=== PATIENT | male | born 1990 | race African-American/Black ===

== ENCOUNTER 2016-08-23 21:16 | Emergency (ER) | payer OTHER ==
[~2016-08-23] VITALS: Ht 175.3 cm; Wt 93.0 kg
[~2016-08-23 21:16] MED LIST: CLARITIN10 MG PO; FLEXERIL10 MG PO; IBUPROFEN800 M1 PO; MOBIC 15MG15 MG PO; NASONEX17 GM NASB; TESSALON PERLE100 M1 PO; ZITHROMAX250 M2 PO
[2016-08-23 21:27] VITALS: BP 155/82
--- NOTE | 2016-08-23 22:04 | RADIOLOGY REPORT ---
EXAMINATION: XR CHEST CLINICAL INFORMATION: Cough. COMPARISON: None TECHNIQUE: 2 views of the chest were obtained. FINDINGS: There are hypoventilatory changes in the lungs. No airspace opacities or pleural effusions are otherwise identified. The cardiomediastinal silhouette is normal. No acute osseous abnormality is seen. IMPRESSION: Low lung volumes with hypoventilatory changes. Otherwise, no acute process.
[2016-08-23] MEDS ORDERED: MEDROL4 M2 PO (22:53)
[2016-08-23] MEDS ORDERED: GUAIFENESIN-COD10 ML PO (22:53)
[2016-08-23] MEDS ORDERED: ZITHROMAX250 M2 PO (22:53)
--- NOTE | 2016-08-23 22:54 | ED DYSPNEA/ASTHMA COMPLAINT ---
History of Present Illness General Chief Complaint: General Adult Stated Complaint: " SOB [id number], CHEST PRESSURE, COUGHING" Source: patient, old records Exam Limitations: no limitations Vital Signs & Intake/Output Vital Signs & Intake/Output Vital Signs Date Time Temp Pulse Resp B/P Pulse O2 O2 Flow FiO2 Ox Delivery Rate 08/23 2126 98.6 110 16 155/82 100 Room Air Allergies Coded Allergies: amphetamine (From Adderall) (UNKNOWN REACTION 06/03/16) dextroamphetamine (From Adderall) (UNKNOWN REACTION CHILD 06/03/16) Reconcile Medications Azithromycin (Zithromax) 250 MG TABLET 1 DP PO AD bronchitis 2 the first day followed by 1 for days 2-5 Azithromycin (Zithromax) 250 MG TABLET 1 DP PO AD URI 2 the first day followed by 1 for days 2-5 Benzonatate (Tessalon Perle) 100 MG CAPSULE 1 CAP PO TID PRN COUGH CYCLOBENZAPRINE HCL (Flexeril) 10 MG TAB 1 TAB PO Q8H PRN spasm/pain Avoid operating motor vehicle or heavy machinery Ibuprofen 800 MG TABLET 1 TAB PO TID PRN PAIN Loratadine (Claritin) 10 MG TAB 1 TAB PO PRN ALLERGIES (Reported) Meloxicam (Mobic 15MG) 15 MG TAB 1 TAB PO DAILY PRN PAIN/INFLAMMATION Methylprednisolone. (Medrol) 4 MG TAB.DS.PK 1 DP PO AD BRONCHITIS 6 on day 1 then reduce by one tablet daily until gone Mometasone Furoate (Nasonex) 50 MCG SPRAY.PUMP 2 SPRAY NASB DAILY PRN CONGESTION Robitussin AC (Guaifenesin-Codeine Syrup) 200 MG-20 MG/10 ML LIQUID 10 ML PO Q6HR PRN COUGH Triage Note: PT TO ED FOR COUGH X 2 WEEKS. REPORTING "I FEEL FINE BUT I WAS AROUND SOMEONE AND THEY WERE COUGHING AND NOW FABIOLA BEEN COUGHING" DENIES FEVER, SOB, CHUNG. REPORTING DRY, CONSTANT COUGH. Triage Nurses Notes Reviewed? yes Onset: Gradual Duration: week(s): (2), constant Timing: recent history Severity: moderate Prior Episodes/Possible Cause: no prior episodes Associated Symptoms: cough HPI: 26-year-old male nonsmoker no history of asthma presents to emergency room complaining of a nonproductive cough for the past 2 weeks associated with rhinorrhea and congestion. He states the coughing is worse at night. He has not sought care for the symptoms until today. He has not taken any over-the- counter medications for his symptoms, there are no modifying factors or associated symptoms of chest pain shortness of breath abdominal pain nausea vomiting diarrhea no sore throat ear pain. (JEROME PEREZ) Past History Travel History Traveled to [place] past 21 day No Medical History Any Pertinent Medical History? 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 No (JEROME PEREZ) Review of Systems Review of Systems Constitutional: Reports: see HPI. All Other Systems: Reviewed and Negative Comments Review of systems: See HPI, All other systems negative. Constitutional, no chills no fever, no malaise HEENT: no sore throat no congestion, no ear pain Cardiovascular: No chest pain , no palpitation Skin, no rashes, no change in skin Respiratory: No dyspnea cough no sputum no hemoptysis GI: No nausea no vomiting, no diarrhea : No dysuria Muscle skeletal: No joint pain, no back pain, no neck pain, Neurologic: No numbness no headache Psych: No stress Heme/endocrine: No bruising no bleeding Immunology: No lymphadenopathy (JEROME PEREZ) Physical Exam Physical Exam General Appearance: well developed/nourished, alert, awake Respiratory: normal breath sounds, chest non-tender, no respiratory distress, lungs clear Comments: Well-developed well-nourished patient in no apparent distress. Head/Face: Atraumatic, no maxillary/frontal sinus tenderness, no facial swelling Eyes: PERRL, EOMI, no conjunctival injection. No nystagmus Ear:External auditory canal and Tympanic membranes clear, no erythema, no FB. Nose: atraumatic.Normal inspection: No bleeding, no septal hematoma Throat: Moist mucous membranes.Pharynx normal. No pharyngeal erythema/exudate seen. No stridor/drooling or assymetry. No swelling or edema. Neck: Supple, no lymphadenopathy, FROM Back: FROM, Nontender Cardiovascular: Regular rate and rhythms no murmurs rubs Respiratory: Chest nontender.There were no bony deformities, no asymmetry. No respiratory distress. Patient speaking in full complete sentences. Breath sounds clear to auscultation bilaterally: NO W/R/R Extremities: full range of motion Neuro: Alert and oriented x3 Skin: Warm & dry;No appreciable rash on exposed skin Psych: Mood affect normal, normal memory normal judgment. Core Measures ACS in differential dx? No Severe Sepsis Present: No Septic Shock Present: No (JEROME PEREZ) Progress Differential Diagnosis: asthma, bronchitis, pneumonia, pneumothorax Plan of Care: Orders Procedure Date/time Status EKG 08/23 2117 Active I discussed with the patient his x-ray results, prescription for Robitussin with codeine Z-M[place] and Medrol Dosepak provided advised close follow-up with his primary care physician return with any concerns patient clinically appears well speaking in full complete sentences they feel comfortable this plan (JEROME PEREZ) Diagnostic Imaging: Viewed by Me: Radiology Read. Discussed w/RAD: Radiology Read. Radiology Impression: PATIENT: ANNA LANZA PRESENT AGE: 26 PATIENT ACCOUNT NO: [id number] : 92 LOCATION: [facility] ORDERING PHYSICIAN: VENKAT GUTIÉRREZ DO SERVICE DATE: 08/23/16 EXAM TYPE: RAD - XRY-CHEST XRAY, PA AND LATERAL EXAMINATION: XR CHEST CLINICAL INFORMATION: Cough. COMPARISON: None TECHNIQUE: 2 views of the chest were obtained. FINDINGS: There are hypoventilatory changes in the lungs. No airspace opacities or pleural effusions are otherwise identified. The cardiomediastinal silhouette is normal. No acute osseous abnormality is seen. IMPRESSION: Low lung volumes with hypoventilatory changes. Otherwise, no acute process. DICTATED BY: HENRIK ZIEGLER MD DATE/TIME DICTATED:08/23/162199 CORPORATE DEVELOPMENT OFFICER:TOBIAS DATE/TIME TRANSCRIBED:08/23/162199 CONFIDENTIAL, DO NOT COPY WITHOUT APPROPRIATE AUTHORIZATION. <Electronically signed in Other Vendor System> SIGNED BY: HENRIK ZIEGLER MD 08/23/162203 Initial ED EKG: stach at 100, no acute st seg changes, normal axis (JEROME PEREZ) Departure Departure Time of Disposition: 2250 Disposition: HOME OR SELF CARE Condition: Stable Clinical Impression Primary Impression: Bronchitis Referrals: ES FERNANDEZ MD (PCP/Family) Additional Instructions: robitussin with codeine for cough. zpak and medrol dose milton as directed. use caution as this will make you drowsy. no driving or drinking alcohol while taking. these were sent to your pharmacy Departure Forms: Customer Survey General Discharge Information Prescriptions: Current Visit Scripts Azithromycin (Zithromax) 1 DP PO AD #6 TAB 2 the first day followed by 1 for days 2-5 Robitussin AC (Guaifenesin-Codeine Syrup) 10 ML PO Q6HR PRN COUGH #200 ML Methylprednisolone. (Medrol) 1 DP PO AD #1 DP 6 on day 1 then reduce by one tablet daily until gone (JEROME PEREZ) PA/BEVERAGE STEWARD Co-Sign Statement Statement: ED Attending supervision documentation- [] I saw and evaluated the patient. I have also reviewed all the pertinent lab results and diagnostic results. I agree with the findings and the plan of care as documented in the PA's/BEVERAGE STEWARD's documentation. [X] I have reviewed the ED Record and agree with the PA's/BEVERAGE STEWARD's documentation. [] Additions or exceptions (if any) to the PAs/BEVERAGE STEWARD's note and plan are summarized below: [] (ASHKAN LAWSON,GUSTABO) Critical Care Note Critical Care Note Critical Care Time: non-applicable (JEROME PEREZ)
== END 2016-08-23 22:51 ==
LOC: ERH 21:16
DX: J40 Bronchitis, not specified as acute or chronic (principal)
CPT/HCPCS: 93005; 93010

== ENCOUNTER 2016-09-10 11:10 | Emergency (ER) | payer OTHER ==
[~2016-09-10] VITALS: Ht 175.3 cm; Wt 93.0 kg
[~2016-09-10 11:10] MED LIST changes: +GUAIFENESIN-COD10 ML PO; +MEDROL4 M2 PO
[2016-09-10 11:15] VITALS: BP 128/76
[2016-09-10] MEDS ORDERED: PROAIR HFA8.5 GM INH (11:31)
[2016-09-10] MEDS ORDERED: PREDNISONE20 M1 PO (11:31)
[2016-09-10] MEDS ORDERED: GUAIFENESIN-COD10 ML PO (11:31)
--- NOTE | 2016-09-10 11:32 | ED INFLUENZA/URI COMPLAINT ---
History of Present Illness General Chief Complaint: Upper Respiratory Sx/Fever Stated Complaint: COUGH AND CONGESTION Source: patient Exam Limitations: no limitations Vital Signs & Intake/Output Vital Signs & Intake/Output Vital Signs Date Time Temp Pulse Resp B/P Pulse O2 O2 Flow FiO2 Ox Delivery Rate 09/10 1115 97.6 79 16 128/76 98 Room Air Allergies Coded Allergies: amphetamine (From Adderall) (UNKNOWN REACTION 06/03/16) dextroamphetamine (From Adderall) (UNKNOWN REACTION CHILD 06/03/16) Reconcile Medications Albuterol Sulfate (Proair Hfa) 90 MCG HFA.AER.AD 2 PUF INH Q4-6 PRN PRN sob Prednisone 20 MG TABLET 2 TAB PO DAILY BRONCHITIS Robitussin AC (Guaifenesin-Codeine Syrup) 200 MG-20 MG/10 ML LIQUID 10 ML PO Q6HR PRN COUGH Triage Note: PT STATES HE HAD BRONCHITIS AND WAS PUT ON MEDS AND TODAY HE STATES IT IS COMING BACK. Triage Nurses Notes Reviewed? yes Onset: Gradual Duration: day(s): (2) Timing: recent history Severity: moderate Severity Numbers: 6 Prior Episodes/Possible Cause: occassional episodes No Modifying Factors: none HPI: Patient is a 26-year-old male with no medical issue presenting to the emergency department to complaining of dry cough of thick going on for the past 2 days. Patient was diagnosed with bronchitis 3 weeks ago and put on antibiotics and steroids. He reports that it improved but over the past 2 days symptoms have been getting better. His friend reports that he's been outside without his jacket. Denies any fevers or chills. No sputum production. No chest pain or shortness of breath. Denies abdominal pain. No sick contacts or recent travel. Nobody aches. No history of smoking or asthma. (SOPHIA VELASQUEZ) Past History Travel History Traveled to [place] past 21 day No Medical History Any Pertinent Medical History? 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 No (SOPHIA VELASQUEZ) Review of Systems Review of Systems Constitutional: Reports: no symptoms. Comments Review of systems: See HPI, All other systems negative. Constitutional, no chills fever or weight loss HEENT: No visual changes no sore throat no congestion Cardiovascular: No chest pain ,palpitation Skin, no jaundice no rashes Respiratory: No sputum or hemoptysis GI: No nausea no vomiting Muscle skeletal: no back pain, no neck pain, Neurologic: No numbness no confusion Psych: No stress anxiety Immunology: No splenectomy or history of AIDS (SOPHIA VELASQUEZ) Physical Exam Physical Exam General Appearance: well developed/nourished, no apparent distress, alert, awake , comfortable Ears, Nose, Throat: pharyngeal erythema Comments: Well-developed well-nourished person in no acute distress HEENT: Pupils equally round and reactive to light and accommodation. Nose is atraumatic. External auditory canal and Tympanic membranes clear. Pharynx is mildly erythematous. No swelling or edema. Neck: Supple, no lymphadenopathy, normal range of motion without pain or tenderness Back: Nontender Cardiovascular: Regular rate and rhythms no murmurs rubs or gallops, normal JVP Respiratory: Chest nontender. No respiratory distress.breath sounds clear to auscultation bilaterally. Dry reactive cough on exam. Neuro: Alert oriented x3 Skin: No appreciable rash on exposed skin, skin is warm and dry. Psych: Mood and affect is normal, memory and judgment is normal. Core Measures Severe Sepsis Present: No Septic Shock Present: No (SOPHIA VELASQUEZ) Progress Differential Diagnosis: upper respiratory infection, sinusitis, bronchitis, pneumonia, RSV Plan of Care: Patient is ill-appearing in no acute distress. No wheezing on exam. Oxygen saturation within normal range. Patient will be started on short course of steroids. I did not feel this patient needs another course of antibiotics. Patient also given an inhaler and cough medication. He will follow with PCP. Patient nontoxic. Initial ED EKG: none (SOPHIA VELASQUEZ) Departure Departure Time of Disposition: 112 Disposition: HOME OR SELF CARE Condition: Stable Clinical Impression Primary Impression: Bronchitis Referrals: ES FERNANDEZ MD (PCP/Family) Additional Instructions: Follow-up with your primary care physician call to make appointment. Take prednisone as prescribed. Increase fluids. Take medication as prescribed. Use albuterol as directed. Return for worsening symptoms or concerns. Departure Forms: Customer Survey General Discharge Information Prescriptions: Current Visit Scripts Albuterol Sulfate (Proair Hfa) 2 PUF INH Q4-6 PRN PRN sob #1 INHAL Robitussin AC (Guaifenesin-Codeine Syrup) 10 ML PO Q6HR PRN COUGH #200 ML Prednisone 2 TAB PO DAILY #10 TAB (SOPHIA VELASQUEZ) PA/TECHNICAL SERVICES COORDINATOR Co-Sign Statement Statement: ED Attending supervision documentation- [] I saw and evaluated the patient. I have also reviewed all the pertinent lab results and diagnostic results. I agree with the findings and the plan of care as documented in the PA's/TECHNICAL SERVICES COORDINATOR's documentation. x I have reviewed the ED Record and agree with the PA's/TECHNICAL SERVICES COORDINATOR's documentation. [] Additions or exceptions (if any) to the PAs/TECHNICAL SERVICES COORDINATOR's note and plan are summarized below: [] (JET LAWSON,SOTERO)
== END 2016-09-10 11:39 ==
LOC: ERH 11:10
DX: J40 Bronchitis, not specified as acute or chronic (principal)